=== PATIENT | male | born 2000 | race Caucasian/White ===

== ENCOUNTER 2019-11-02 23:47 | Emergency (ER) | payer BC, MEDICAID ==
[~2019-11-02] VITALS: Ht 188 cm; Wt 77.3 kg
[2019-11-03] MEDS ORDERED: normal saline 1000ML IV soln IVB ONE (00:15)
[2019-11-03 00:23] LABS: EOSINOPHILS # (AUTO) 0.1 X10'3 (0-0.9); MEAN PLATELET VOLUME 8.1 FL (7.4-10.4); RED BLOOD COUNT 5.68 X10'6 (4.70-6.10); RED CELL DISTRIBUTION WIDTH 12.8 % (11.5-14.5)
[2019-11-03 00:25] LABS: BASOPHILS % (AUTO) 0.6 % (0-1); EOSINOPHILS % (AUTO) 1.4 % (0-6); HEMATOCRIT 50.1 % (42.0-52.0); HEMOGLOBIN 17.5 g/dl (14.0-17.9); LYMPHOCYTES # (AUTO) 3.2 X10'3 (1.1-4.8); MEAN CORPUSCULAR HEMOGLOBIN 30.8 PG (27.0-31.0); MEAN CORPUSCULAR HGB CONC 34.9 g/dL (33.0-36.5); MEAN CORPUSCULAR VOLUME 88.2 FL (78-98); MONOCYTES # (AUTO) 0.8 X10'3 (0-0.9); NEUTROPHILS # (AUTO) 4.3 X10'3 (1.8-7.7); PLATELET COUNT 272 X10'3 (140-440); WHITE BLOOD COUNT 8.5 X10'3 (4.5-11.0)
[2019-11-03 00:27] LABS: PARTIAL THROMBOPLASTIN TIME 29 SECONDS (22-32)
[2019-11-03 00:29] LABS: ALANINE AMINOTRANSFERASE 41 U/L (12-78); ALBUMIN 4.7 G/DL (3.4-5.0); ALBUMIN/GLOBULIN RATIO 1.1 (1.1-1.5); ALKALINE PHOSPHATASE 158 IU/L (20-180); ANION GAP 9 (8-16); ASPARTATE AMINO TRANSFERASE 17 U/L (10-37); BILIRUBIN,TOTAL 0.3 MG/DL (0.1-1.0); BLOOD UREA NITROGEN 17 MG/DL (7-18); BUN/CREATININE RATIO 15.3 (5.4-32.0); CHLORIDE 102 MMOL/L (99-107); CREATININE 1.11 MG/DL (0.60-1.10); GLUCOSE 103 MG/DL (70-104); POTASSIUM 3.4 MMOL/L (3.5-5.1); SODIUM 139 MMOL/L (135-145); TOTAL CARBON DIOXIDE 28.2 MMOL/L (24-32); TOTAL PROTEIN 8.9 G/DL (6.4-8.2); eGFR 84 ML/MIN
[2019-11-03] MEDS ORDERED: DOCU-170 PO (00:54)
[2019-11-03 01:02] VITALS: BP 148/105
== END 2019-11-03 01:06 | disposition home or self-care (01) ==
LOC: ER 23:50
DX: K92.1 Melena (principal); K59.00 Constipation, unspecified; F41.9 Anxiety disorder, unspecified; J45.909 Unspecified asthma, uncomplicated; F17.200 Nicotine dependence, unspecified, uncomplicated
CPT/HCPCS: 36415; 80053; 85025; 85610; 85730; 99283; J7030

== ENCOUNTER 2024-04-05 14:53 | Emergency (ER) | payer BC, MEDICAID ==
[~2024-04-05] VITALS: Ht 190.5 cm; Wt 77.3 kg
[~2024-04-05 14:53] MED LIST: DOCU-170 PO
[2024-04-05 14:54] VITALS: TEMP 99.2
[2024-04-05 15:27] LABS: BILIRUBIN,URINE NEGATIVE (Neg); CLARITY,URINE CLEAR (Clear); COLOR,URINE YELLOW (Yellow); GLUCOSE, URINE NEGATIVE (Neg); KETONES,URINE NEGATIVE (Neg); LEUKOCYTE ESTERASE ,URINE NEGATIVE (Neg); NITRITES, URINE NEGATIVE (Neg); OCCULT BLOOD,URINE NEGATIVE (Neg); PROTEIN,URINE NEGATIVE (Neg)
[2024-04-05] MEDS ORDERED: MELO-100 PO (15:28)
[2024-04-05 15:30] LABS: UA COLLECTION TYPE CLN CATCH MIDSTREAM
[2024-04-05 15:39] LABS: URINE AMPHETAMINE SCREEN NEGATIVE (Neg); URINE BARBITUATE SCREEN NEGATIVE (Neg); URINE BENZODIAZEPINES SCREEN NEGATIVE (Neg); URINE CANNABINOID SCREEN NEGATIVE (Neg); URINE COCAINE SCREEN NEGATIVE (Neg); URINE METHADONE SCREEN NEGATIVE (Neg); URINE OPIATE SCREEN NEGATIVE (Neg); URINE PHENCYCLIDINE SCREEN NEGATIVE (Neg)
[2024-04-05] MEDS: ketorolac trometh 30MG/ML vial 30 MG/ML VIAL IM ONE (15:59)
[2024-04-05] MEDS: dexamethasone sod phosphate 10mg/ml inj IM STA (16:00)
[2024-04-05 16:24] VITALS: BP 134/95; PULSE 77; RESP 16; O2SAT 97
== END 2024-04-05 16:57 | disposition home or self-care (01) ==
LOC: ER 14:54
DX: M94.0 Chondrocostal junction syndrome [Tietze] (principal); J45.909 Unspecified asthma, uncomplicated; F41.9 Anxiety disorder, unspecified; Z20.822 Contact with and (suspected) exposure to COVID-19; Z79.899 Other long term (current) drug therapy
CPT/HCPCS: 36415; 71045; 80305; 81003; 87811; 93005; 96372; 99285; J1100; J1885